=== PATIENT | female | born 1990 | race Caucasian/White ===

== ENCOUNTER 2016-09-26 11:16 | Emergency (ER) | payer OTHER ==
[2016-09-26 13:53] VITALS: BP 124/70
== END 2016-09-26 13:53 | disposition home or self-care (01) ==
LOC: ED 11:16
DX: R51 Headache (principal); G89.29 Other chronic pain; F41.9 Anxiety disorder, unspecified

== ENCOUNTER 2016-10-17 19:34 | Emergency (ER) | payer OTHER ==
[2016-10-17 23:07] LABS: BASOPHIL % 0.1 % (0-2); PLATELET COUNT 242 x10^3mcL (130-400); RED CELL DISTRIBUTION WIDTH 13.6 % (11.5-14.5)
[2016-10-17 23:15] LABS: CARBON DIOXIDE 24.2 mmol/L (21-32); CREATININE SERUM 2.2 mg/dL (0.6-1.0)
[2016-10-17 23:16] LABS: UA SPECIFIC GRAVITY <=1.005 (1.005-1.035); microscopic required? YES; urine erythrocyte 1+ (NEGATIVE)
[2016-10-17 23:20] LABS: ALBUMIN 3.9 g/dL (3.4-5.0); BILIRUBIN TOTAL 0.7 mg/dL (0.20-1.00); TOTAL PROTEIN, SERUM 7.9 g/dL (6.4-8.2)
[2016-10-18 01:02] VITALS: BP 110/66
[2016-10-19] MEDS ORDERED: MAC100 PO (09:34)
== END 2016-10-18 01:02 | disposition home or self-care (01) ==
LOC: ED 19:34
PROVIDERS: Emergency Medicine
DX: N39.0 Urinary tract infection, site not specified (principal); G89.29 Other chronic pain
CPT/HCPCS: 36415; J2270; Q0162

== ENCOUNTER 2016-10-19 05:14 | Inpatient (IN) | payer OTHER ==
[~2016-10-19] VITALS: Ht 170.2 cm; Wt 91.0 kg
[2016-10-19 07:00] LABS: CALCIUM 8.7 mg/dL (8.5-10.1); CARBON DIOXIDE 23.9 mmol/L (21-32); CREATININE SERUM 2.5 mg/dL (0.6-1.0); POTASSIUM SERUM 3.6 mmol/L (3.5-5.1)
[2016-10-19 07:01] LABS: BASOPHIL % 0.1 % (0-2); PLATELET COUNT 223 x10^3mcL (130-400)
[2016-10-19 07:06] LABS: ALBUMIN 3.7 g/dL (3.4-5.0); BILIRUBIN TOTAL 0.5 mg/dL (0.20-1.00); TOTAL PROTEIN, SERUM 7.4 g/dL (6.4-8.2)
[2016-10-19 08:01] LABS: UA SPECIFIC GRAVITY <=1.005 (1.005-1.035); microscopic required? YES; urine erythrocyte 1+ (NEGATIVE)
[2016-10-19] MEDS ORDERED: MAC100 PO (09:34)
[2016-10-19 09:57] LABS: MAGNESIUM 2.2 mg/dL (1.8-2.4); PHOSPHOROUS 3.5 mg/dL (2.5-4.9)
[2016-10-19 10:00] LABS: CHOLESTEROL/HDL RATIO 2.8
[2016-10-19 10:04] LABS: T3 TOTAL 1.25 ng/mL
[2016-10-19 10:22] LABS: FREE T4 0.87 ng/dL (0.76-1.46); FREE THYROXINE INDEX 2.2 ug/dL (1.4-4.5); T4(THYROXINE) 6.6 ug/dL (4.7-13.3)
[2016-10-19 11:02] VITALS: BP 97/73
[2016-10-19 11:52] VITALS: BP 97/73
[2016-10-19 12:02] VITALS: BP 107/78
[2016-10-19 16:23] LABS: AMPHETAMINE QUAL UR NONE DETECTED (NEG <=1000)
[2016-10-19 17:05] VITALS: BP 100/61
[2016-10-19 21:08] VITALS: BP 118/80
[2016-10-20 06:05] VITALS: BP 111/75
[2016-10-20 08:59] VITALS: BP 116/72
[2016-10-20 09:03] LABS: CALCIUM 8.2 mg/dL (8.5-10.1); CARBON DIOXIDE 27.1 mmol/L (21-32); CREATININE SERUM 1.5 mg/dL (0.6-1.0); MAGNESIUM 2.3 mg/dL (1.8-2.4); PHOSPHOROUS 3.4 mg/dL (2.5-4.9); POTASSIUM SERUM 3.9 mmol/L (3.5-5.1)
[2016-10-20 09:05] LABS: BASOPHIL % 0.4 % (0-2); PLATELET COUNT 213 x10^3mcL (130-400)
[2016-10-20 09:37] LABS: RED CELL DISTRIBUTION WIDTH 14.6 % (11.5-14.5)
[2016-10-20] MEDS ORDERED: ZOF4 PO (12:41)
[2016-10-20] MEDS ORDERED: CYCLOBENZAPRINE5 MG PO (12:44)
[2016-10-20] MEDS ORDERED: CEFACLOR500 MG PO (12:51)
== END 2016-10-20 13:30 | disposition left against medical advice (07) | DRG 463 ==
LOC: ED 05:14 → DU 08:01 → MU 10-20 11:17
PROVIDERS: Emergency Medicine; ADMIT Family Medicine
DX: N12 Tubulo-interstitial nephritis, not specified as acute or chronic (principal); N17.0 Acute kidney failure with tubular necrosis; F41.9 Anxiety disorder, unspecified; G89.29 Other chronic pain; M54.9 Dorsalgia, unspecified; E02 Subclinical iodine-deficiency hypothyroidism; Z53.29 Procedure and treatment not carried out because of patient's decision for other reasons; Z53.21 Procedure and treatment not carried out due to patient leaving prior to being seen by health care provider; R31.9 Hematuria, unspecified; D64.9 Anemia, unspecified; E87.8 Other disorders of electrolyte and fluid balance, not elsewhere classified; R74.0 Nonspecific elevation of levels of transaminase and lactic acid dehydrogenase [LDH]; N83.202 Unspecified ovarian cyst, left side; Z80.3 Family history of malignant neoplasm of breast; Z83.3 Family history of diabetes mellitus; Z86.14 Personal history of Methicillin resistant Staphylococcus aureus infection; Z82.49 Family history of ischemic heart disease and other diseases of the circulatory system
CPT/HCPCS: 83880; 84439; J0696; J2270; J2405; J7030; Q0092

== ENCOUNTER 2017-12-27 15:51 | Emergency (ER) | payer OTHER ==
[~2017-12-27] VITALS: Ht 170.2 cm; Wt 89.8 kg
[~2017-12-27 15:51] MED LIST: CEFACLOR500 MG PO; CYCLOBENZAPRINE5 MG PO; MAC100 PO; ZOF4 PO
[2017-12-27 15:55] VITALS: Ht 170.2 cm; Wt 89.8 kg
[2017-12-27 17:50] LABS: BASOPHIL % 0.4 % (0-2); CALCIUM 8.3 mg/dL (8.5-10.1); CARBON DIOXIDE 29.1 mmol/L (21-32); CHLORIDE SERUM 103 mmol/L (98-107); CREATININE SERUM 1.1 mg/dL (0.6-1.0); GFR1 > 60 mL/min; GLUCOSE SERUM 93 mg/dL (74-106); PLATELET COUNT 255 x10^3mcL (130-400); POTASSIUM SERUM 3.9 mmol/L (3.5-5.1); RED CELL DISTRIBUTION WIDTH 13.9 % (11.5-14.5); SODIUM SERUM 137 mmol/L (136-145)
[2017-12-27 17:55] LABS: ALBUMIN 3.9 g/dL (3.4-5.0); ALKALINE PHOSPHATASE 66 U/L (46-116); ALT/SGPT 54 U/L (14-59); AST/SGOT 26 U/L (15-37); BILIRUBIN TOTAL 0.27 mg/dL (0.20-1.00); TOTAL PROTEIN, SERUM 7.8 g/dL (6.4-8.2)
[2017-12-27 18:05] LABS: FREE T4 0.73 ng/dL (0.76-1.46); T4(THYROXINE) 6.3 ug/dL (4.7-13.3)
[2017-12-27 18:17] LABS: T3 TOTAL 1.2 ng/mL
[2017-12-27 19:20] VITALS: BP 126/63
== END 2017-12-27 19:20 | disposition home or self-care (01) ==
LOC: ED 15:51
PROVIDERS: Emergency Medicine
DX: R53.1 Weakness (principal); R53.81 Other malaise; R07.0 Pain in throat; M79.10 Myalgia, unspecified site; R13.10 Dysphagia, unspecified; R42 Dizziness and giddiness; F41.9 Anxiety disorder, unspecified; G89.29 Other chronic pain; M54.9 Dorsalgia, unspecified; Z98.890 Other specified postprocedural states
CPT/HCPCS: 36415; 84439

== ENCOUNTER 2018-12-13 11:21 | Emergency (ER) | payer OTHER ==
[~2018-12-13] VITALS: Ht 170.2 cm; Wt 87.5 kg
[2018-12-13 11:25] VITALS: Ht 170.2 cm; Wt 87.5 kg
[2018-12-13 11:52] LABS: PLATELET COUNT 230 x10^3mcL (130-400); RED CELL DISTRIBUTION WIDTH 13.8 % (11.5-14.5)
[2018-12-13 11:57] LABS: BASOPHIL % 0 % (0-2)
[2018-12-13 12:03] LABS: CALCIUM 8.3 mg/dL (8.5-10.1); CARBON DIOXIDE 25.6 mmol/L (21-32); CHLORIDE SERUM 104 mmol/L (98-107); CREATININE SERUM 0.8 mg/dL (0.6-1.0); GFR1 > 60 mL/min; GLUCOSE SERUM 115 mg/dL (74-106); POTASSIUM SERUM 3.5 mmol/L (3.5-5.1); SODIUM SERUM 139 mmol/L (136-145)
[2018-12-13 12:05] LABS: ALKALINE PHOSPHATASE 57 U/L (46-116); ALT/SGPT 34 U/L (14-59); AST/SGOT 20 U/L (15-37); BILIRUBIN TOTAL 0.53 mg/dL (0.20-1.00); LIPASE 138 IU/L (73-393); TOTAL PROTEIN, SERUM 7.9 g/dL (6.4-8.2)
[2018-12-13 13:54] VITALS: BP 101/65
== END 2018-12-13 13:54 | disposition home or self-care (01) ==
LOC: ED 11:21
PROVIDERS: Emergency Medicine
DX: K52.9 Noninfective gastroenteritis and colitis, unspecified (principal); F41.9 Anxiety disorder, unspecified; G89.29 Other chronic pain; M54.9 Dorsalgia, unspecified; Z98.890 Other specified postprocedural states
CPT/HCPCS: J2405; J7030

== ENCOUNTER 2019-02-01 21:05 | Emergency (ER) | payer OTHER | END 2019-02-01 23:00 | disposition left against medical advice (07) | LOC: ED 21:05 | DX: Z53.21 Procedure and treatment not carried out due to patient leaving prior to being seen by health care provider (principal) ==

== ENCOUNTER 2019-06-24 08:06 | Emergency (ER) | payer OTHER ==
[~2019-06-24] VITALS: Ht 170.2 cm; Wt 91.2 kg
[2019-06-24 08:20] VITALS: Ht 170.2 cm; Wt 91.2 kg
[2019-06-24 09:00] LABS: BASOPHIL % 0.3 % (0-2); PLATELET COUNT 282 x10^3mcL (130-400); RED CELL DISTRIBUTION WIDTH 13.7 % (11.5-14.5)
[2019-06-24 09:05] LABS: CALCIUM 8.9 mg/dL (8.5-10.1); CARBON DIOXIDE 25.7 mmol/L (21-32); CHLORIDE SERUM 103 mmol/L (98-107); CREATININE SERUM 0.9 mg/dL (0.6-1.0); GFR1 > 60 mL/min; GLUCOSE SERUM 103 mg/dL (74-106); POTASSIUM SERUM 3.6 mmol/L (3.5-5.1); SODIUM SERUM 137 mmol/L (136-145)
[2019-06-24 09:09] LABS: ALKALINE PHOSPHATASE 52 U/L (46-116); ALT/SGPT 72 U/L (14-59); AST/SGOT 31 U/L (15-37); BILIRUBIN TOTAL 0.36 mg/dL (0.20-1.00); CHOLESTEROL 148 mg/dL (<200); HDL CHOLESTEROL 37 mg/dL (40-60); LIPASE 139 IU/L (73-393); TOTAL PROTEIN, SERUM 7.2 g/dL (6.4-8.2); TRIGLYCERIDES 113 mg/dL (<150)
[2019-06-24 09:57] LABS: T3 TOTAL 1.48 ng/mL
[2019-06-24 10:10] LABS: FREE T4 0.79 ng/dL (0.76-1.46); T4(THYROXINE) 6.3 ug/dL (4.7-13.3)
[2019-06-24 10:14] LABS: AMPHETAMINE QUAL UR NONE DETECTED (See below)
[2019-06-24 10:22] VITALS: BP 110/61
== END 2019-06-24 10:20 | disposition home or self-care (01) ==
LOC: ED 08:06
PROVIDERS: Specialist
DX: R42 Dizziness and giddiness (principal); R09.89 Other specified symptoms and signs involving the circulatory and respiratory systems; H92.03 Otalgia, bilateral
CPT/HCPCS: 36415; 83880; 84439; J8597

== ENCOUNTER 2019-09-08 22:43 | Emergency (ER) | payer OTHER ==
[~2019-09-08] VITALS: Ht 170.2 cm; Wt 93.0 kg
[2019-09-08 22:44] VITALS: Ht 170.2 cm; Wt 93.0 kg
[2019-09-08 23:16] VITALS: BP 113/68
== END 2019-09-08 23:16 | disposition home or self-care (01) ==
LOC: ED 22:43
DX: F41.9 Anxiety disorder, unspecified (principal)